=== PATIENT | female | born 1950 | race Caucasian/White ===

== ENCOUNTER 2017-06-19 17:11 | Emergency (ER) | payer MEDICARE, MEDICAID ==
[~2017-06-19] VITALS: Ht 170.2 cm; Wt 62.3 kg
[2017-06-19 17:34] VITALS: BP 157/80; PULSE 69; RESP 22; O2SAT 99
--- NOTE | 2017-06-19 18:16 | ED.REPORT ---
HPI-Abd Pain F 40 and Over Date of Service Jun 19, 2017 ED Provider: Dr. Will Pt is a 66 year old female with a hx of osteoporosis and arthritis presenting to the ED complaining of 8/10 sharp right sided abdominal pain onset intermittently 2 months ago, worsened 3 weeks ago. She states that when she bends over there is a sharp pain that moves from her RLQ to her RUQ. The pain is not exacerbated by eating. Associated symptoms include diarrhea, chills, body aches, and lower back pain. She saw her PCP and gave a urine sample and was started on diarrhea medication so her diarrhea has now resolved. Denies fever, nausea, vomiting, numbness or weakness. Nursing Notes Stated Complaint: ABDOMINAL PAIN Chief Complaint: Female Abdominal Pain Nursing Notes Reviewed: Yes Allergies: Coded Allergies: morphine (Verified Adverse Reaction, Severe, mIGRAINE, 06/19/17) Scheduled PRN oxyCODONE-Acetaminophen 5-325 mg (oxyCODONE-Acetaminophen 5-325 mg) 1 Each Tablet 1 TAB PO Q6H PRN PRN For Pain General Time Seen by MD: 18:16 Chief Complaint Abdominal pain Hx Obtained From: Patient Arrived By: Walk-in Sudden in Onset?: No Onset Occurred: More than a week ago... (2 months) Symptom Duration: Since onset Progression since Onset: Gradually worsening Location: : RLQ: RUQ Quality: Painful, Sharp Severity: Current: Pain level 8 out of 10 Severity: Maximum: Pain level 8 out of 10 Recent Healthcare: No recent doctor visit, No recent hospitalization Similar Sx Previous: Yes Past Medical History Past Medical History Osteoporosis and arthritis Past Surgical History Denies Smoking History Unknown if Ever Smoker Ambulatory Status Independent Review of Systems Reports body aches Constitutional: Reports: Chills, Denies: Fever GI: Reports: Abdominal pain, Diarrhea, Denies: Nausea, Vomiting Musculoskeletal: Reports: Back pain Complete sys rev & neg: except as marked. Neurologic: Denies: Numbness, Weakness Physical Exam Vital Signs Vital Signs (First) Date Time Temp Pulse Resp B/P Pulse Ox O2 Delivery O2 Flow Rate FiO2 06/19/17 17:34 36.7 69 22 157/80 99 Room Air Initial VS: Reviewed, Vital signs abnormal Extremities: Vascular intact, Neuro intact, No swelling, No tenderness Skin: Warm, Dry, No cyanosis Neurologic: Alert, Oriented, Nonfocal Psychiatric: Mood/affect normal, Behavior normal, Normal thought content General/Constitutional: Awake, Alert Respiratory / Chest: Atraumatic, Breath sounds NL, Breath sounds = bilat, No respiratory distress Cardiovascular: Heart rate NL, Regular rhythm, Heart sounds NL Abdomen: Atraumatic, Soft General abdominal pain worse in the right quadrant. General guarding. Head / Eyes: Atraumatic, Normocephalic Injected sclera ENT: Atraumatic, Airway patent Dry tongue Interpretation & Diagnostics Lab Results Interpretation Result Diagram: 06/19/17 1808 06/19/17 1808 Test 06/19/17 18:08 06/19/17 18:10 06/19/17 18:43 06/19/17 19:04 White Blood Count 12.7th/mm3 (3.8-10.1) Red Blood Count 4.82mil/mm3 (3.90-5.20) Hemoglobin 14.3g/dL (12.0-15.6) Hematocrit 42.2% (35.0-46.0) Mean Corpuscular Volume 87.6fL (81-100) Mean Corpuscular Hemoglobin 29.7pg (27.0-35.0) Mean Corpuscular Hemoglobin Concent 33.9% (32.0-37.0) Red Cell Distribution Width 13.9% (12.3-15.4) Platelet Count 321bil/L (150-400) Neutrophils (%) (Auto) 74.9% (40-74) Lymphocytes (%) (Auto) 18.2% (14-46) Monocytes (%) (Auto) 6.0% (4-12) Eosinophils (%) (Auto) 0.5% (0-5) Basophils (%) (Auto) 0.2% (0-3) Sodium Level 136mEq/L (134-144) Potassium Level 3.9mEq/L (3.5-5.2) Chloride Level 95mEq/L (97-108) Carbon Dioxide Level 23mmol/L (18-29) Blood Urea Nitrogen 4mg/dL (8-27) Creatinine 0.57mg/dL (0.57-1.00) Estimat Glomerular Filtration Rate 152mL/min (>59) Glucose Level 99mg/dL (60-99) Calcium Level 10.9mg/dL (8.5-10.1) Magnesium Level 2.0mg/dL (1.6-2.6) Total Bilirubin 0.4mg/dL (0.0-1.2) Aspartate Amino Transf (AST/SGOT) 33U/L (0-50) Alanine Aminotransferase (ALT/SGPT) 13U/L (0-32) Alkaline Phosphatase 93U/L (25-165) Total Protein 9.1g/dL (6.4-8.4) Albumin 4.7g/dL (3.4-5.0) Hold Purple Top Tube Received (Received) Hold [place] Top Tube Received (Received) Urine Color Yellow (YELLOW) Urine Appearance Clear (CLEAR,HAZY) Urine pH 7.0 (5.0-8.0) Urine Specific [place] 1.015 (1.003-1.035) Urine Protein 100mg/dL (NEG,TRACE) Urine Glucose (UA) Negativemg/dL (NEGATIVE) Urine Ketones Negativemg/dL (NEGATIVE) Urine Occult Blood Large (NEGATIVE) Urine Nitrite Negative (NEGATIVE) Urine Bilirubin Negative (NEGATIVE) Urine Urobilinogen Normalmg/dL (NORMAL) Urine Leukocyte Esterase Negative (NEGATIVE) Urine RBC >50/hpf (0-2) Urine WBC 0-5/hpf (0-5) Urine Epithelial Cells Occasional/hpf (NONE-MOD) Urine Crystals None seen (NONE SEEN) Urine Bacteria Few/hpf (NONE-FEW) Urine Hyaline Casts None/lpf (NONE) Urine Granular Casts None seen (NONE SEEN) Urine Waxy Casts None seen (NONE SEEN) Urine Red Blood Cell Casts None seen (NONE SEEN) Urine White Blood Cell Casts None seen (NONE SEEN) Urine Mucus None seen (None Seen) Urine Trichomonas None seen (NONE SEEN) Urine Yeast None (NONE SEEN) Urinalysis Comment None Urine Culture Reflexed Not indicated Prothrombin Time 10.3sec (8.1-12.5) Prothromb Time International Ratio 0.96ratio Hold Silva Top Tube Received (Received) CT Abd / Pelvis Interpretation IMPRESSION: No acute abnormality identified. Appendix not well-visualized however may be surgically absent. Please correlate clinically. 8mm enhancing lesion within the left lobe, technically indeterminate. This could represent flash filling hemangioma however cannot exclude other more malignant/metastatic possibilities. As clinically warranted, further assessment and continued future surveillance with ultrasound (versus CT if not visible by ultrasound) Colonic diverticulosis without evidence of acute complication. Bilateral renal cortical scarring and small cysts. Dictated by: Robert Vasquez M.D. on 06/19/2017 at 19:37 Study type: Abdominal CT IV contrast Interpretation / Wet Read by: Interpret - Radiologist Re-Eval/Medical Decision Med Decision/Clinical Course The patient presents with chronic abdominal pain that has gotten worse, she does not have symptoms other than pain. She complains of predominantly right- sided pain however on exam she is generalized abdominal pain. A partial list of differential diagnoses considered were pancreatitis, renal colic, pyelonephritis , colitis, diverticulitis, hepatitis, and renal obstruction. The patient has already had her gallbladder and appendix removed. The patient was found to have hematuria, possible she has a stone that's passing but is too small to cause any obstruction. It is unclear as to the cause of her pain however no acute surgical process was found at this time. Re-Evaluation/Progress : Time of Eval: 20:10 Patient Status: Condition improved Re-Evaluation/Progress Note: Pain is now a 5/10. Informed of CT results. Counseled Regarding: Diagnosis, Lab results, Need for follow-up, When/why to return to ED Discharge & Departure Primary Impression: Abdominal pain Abdominal location: generalized Qualified Code: R10.84 - Generalized abdominal pain Disposition: Home Discharge Condition All VS Reviewed: Yes Condition: Improved Patient Instructions: Abdominal Pain (ED) Additional Instructions: No dangerous cause for your symptoms today was identified. Your CT scan did not show a cause for your abdominal pain. You did have a bit of blood in your urine, and you also had an abnormal uptake of dye in your lung which will also need to be followed up with your regular doctor. Please follow up with your primary care doctor in the next few days. Return to the ER if you develop any new or worsening symptoms such as nausea, vomiting, fever, or increased pain. Take the pain medication prescribed sparingly. Referrals: Wanda Allison PA-C (PCP) Danisha Attestation Portions of this note were transcribed by Maisha Nash. I, Dr. Will personally performed the history, physical exam and medical decision-making; I reviewed and confirmed the accuracy of the information in the transcribed note. Signed by : Danisha Meadows, 06/19/2017. copies to: Wanda Allison PA-C, Jena M MD Jun 19, 2017 18:16 MAISHA NASH Jun 19, 2017 20:08
[2017-06-19 18:23] LABS: Mean Corpuscular Hemoglobin 29.7 pg (27.0-35.0); Mean Corpuscular Volume 87.6 fL (81-100)
[2017-06-19] MEDS ORDERED: 0.9% Sodium Chloride 500 ML IV ONE (18:40)
[2017-06-19] MEDS ORDERED: HYDROmorphone 0.5 mg/0.5 mL iSecure Syringe IVPUSH PRN (18:40)
[2017-06-19] MEDS: Ondansetron 2 mg/mL 2 mL Inj IVPUSH PRN ×2 (18:54→19:19)
[2017-06-19 18:59] LABS: BASOPHILS % (AUTO) 0.2 % (0-3); EOSINOPHILS % (AUTO) 0.5 % (0-5); NEUTROPHILS % (AUTO) 74.9 % (40-74)
[2017-06-19 19:05] LABS: APPEARANCE,URINE CLEAR (CLEAR,HAZY); COLOR,URINE YELLOW (YELLOW); OCCULT BLOOD,URINE LARGE (NEGATIVE); UROBILINOGEN,URINE NORMAL (NORMAL)
[2017-06-19 19:31] LABS: INR 0.96 ratio
--- NOTE | 2017-06-19 19:47 | DRSVH ---
PROCEDURE: CT ABDOMEN AND PELVIS WITH CONTRAST ([id number]) INDICATIONS: gen abd pain worse on right TECHNIQUE: After the administration of intravenous contrast, 5 mm thick sections acquired from the diaphragm to the symphysis. 5 mm coronal and sagittal reformats were acquired. For radiation dose reduction, the following was used: automated exposure control, adjustment of mA and/or kV according to patient siz e. COMPARISON: None. FINDINGS: Image quality: Excellent. ABDOMEN: Lung bases: Lung bases are clear. Heart size is normal. Solid organs: Possible less than 5 mm cyst in the left lobe of the liver on image 13, too small fatimah cterize. There is an 8mm focus of enhancement seen within the left lobe on image 15 series 2. and spl een are normal in size and enhancement. Gallbladder surgically absent. Biliary system is non dilate d. Pancreas enhances normally. No adrenal nodules. Kidneys demonstrate normal size and enhancement , without hydronephrosis. Bilateral renal cortical scarring/atrophy. Simple appearing right renal cy sts. Peritoneum and bowel: Bowel loops demonstrate normal wall thickness and caliber. No free fluid or a ir. Numerous colonic diverticuli are present. Appendix not well seen and may be surgically absent. Nodes and vessels: No retroperitoneal or mesenteric adenopathy by size criteria. Aorta and inferior vena cava are normal in size. Miscellaneous: No ventral hernias. PELVIS: Genitourinary: Bladder wall thickness is normal. Miscellaneous: No inguinal hernias or adenopathy. Bones: No suspicious bony lesions. 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 N o vertebral body compression fractures. IMPRESSION: No acute abnormality identified. Appendix not well-visualized however may be surgically absent. Pleas e correlate clinically. 8mm enhancing lesion within the left lobe, technically indeterminate. This could represent flash fill ing hemangioma however cannot exclude other more malignant/metastatic possibilities. As clinically wa rranted, further assessment and continued future surveillance with ultrasound (versus CT if not visib le by ultrasound) Colonic diverticulosis without evidence of acute complication. Bilateral renal cortical scarring and small cysts. Dictated by: Robert Vasquez M.D. on 06/19/2017 at 19:37 Approved by: Robert Vasquez M.D. on 06/19/2017 at 19:45
[2017-06-19] MEDS ORDERED: _oxyCODONE/APAP 5-325 mg Tablet PO PRN (20:20)
[2017-06-19] MEDS ORDERED: OXYC1TAB24 PO (20:22)
[2017-06-19 20:35] VITALS: BP 158/63; PULSE 73; RESP 18; O2SAT 99
== END 2017-06-19 21:05 | disposition home or self-care (01) ==
LOC: SED 17:11 → EDBD 17:11 → SED 21:05
DX: R10.31 Right lower quadrant pain (principal); R10.32 Left lower quadrant pain; R19.7 Diarrhea, unspecified; M54.5 Low back pain; M79.1 Myalgia; R68.83 Chills (without fever); Z88.5 Allergy status to narcotic agent
CPT/HCPCS: 36415; 74177; 80053; 81000; 83735; 85027; 85610; 96374; 96375; 99285; J1170; J2405; J7040; Q9967